=== PATIENT | female | born 1970 | race Caucasian/White ===

== ENCOUNTER 2023-05-22 11:52 | Outpatient (CLI) | payer OTHER, SELFPAY ==
--- NOTE | ~2023-05-22 | US_ITS ---
EXAMINATION: US soft tissue groin LT DATE: 05/22/2023 12:26 INDICATION: Left groin lump. TECHNIQUE: Multiple grayscale and Doppler ultrasound images of the left groin were obtained. COMPARISON: CT abdomen and pelvis 10/18/2003 FINDINGS: There is a 2.2 x 4.7 cm hyperechoic mass in the left inguinal region. IMPRESSION: 1. 2.2 x 4.7 cm mass in the left inguinal region. The differential diagnosis includes hernia and lymp hadenopathy. Consider pelvis CT or MRI. Reviewed, dictated and finalized at location [facility]. 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 2.2 x 4.7 cm mass in the left inguinal region. The differential diagnosis in cludes hernia and lymphadenopathy. Consider pelvis CT or MRI.
== END 2023-05-22 11:53 ==
PROVIDERS: PCP Nurse Practitioner Family; Visit Provider Nurse Practitioner Family
DX: R22.42 Localized swelling, mass and lump, left lower limb (principal)
CPT/HCPCS: 76882

== ENCOUNTER 2023-06-06 08:37 | Outpatient (CLI) | payer OTHER, SELFPAY ==
--- NOTE | ~2023-06-06 | CT_ITS ---
EXAMINATION: CT pelvis w con DATE: 06/06/2023 09:03 INDICATION: Left inguinal mass, tenderness TECHNIQUE: Computed tomography (CT) of the pelvis was performed with 100 CC Omnipaque 350 intravenous contrast. Automated exposure control and iterative reconstruction technique were employed. Exam dose : 373.14 mGy-cm total exam DLP. COMPARISON: 05/22/2023 left groin soft tissue ultrasound examination FINDINGS: Very small fat-containing umbilical hernia. The uterus, adnexal areas and relatively evacuated urinary bladder appears unremarkable. The included portions of the lower poles of the kidneys appear unremarkable. Normal caliber of the distal abdominal aorta. No pelvic mass lesion or adenopathy or ascites. No inguinal hernia is evident on the left no residual evidence of left inguinal lymphadenopathy. Included skeletal structures are unremarkable. IMPRESSION: No left inguinal hernia or left groin mass lesion or adenopathy Reviewed, dictated and finalized at [facility]. Reviewed, dictated and finalized at location [facility].
== END 2023-06-06 08:38 ==
PROVIDERS: PCP Family Medicine; Visit Provider Nurse Practitioner Family
DX: R19.09 Other intra-abdominal and pelvic swelling, mass and lump (principal); R93.89 Abnormal findings on diagnostic imaging of other specified body structures
CPT/HCPCS: 72193; Q9967